=== PATIENT | female | born 1945 | race Caucasian/White ===

== ENCOUNTER 2017-10-22 08:38 | Emergency (ER) | payer OTHER, BC ==
[~2017-10-22] VITALS: Ht 167.6 cm; Wt 68.0 kg
[2017-10-22 08:47] VITALS: Ht 167.6 cm; Wt 68.0 kg
[2017-10-22 12:46] VITALS: BP 101/53
== END 2017-10-22 12:46 | disposition home or self-care (01) ==
LOC: ED 08:38
DX: S52.502A Unspecified fracture of the lower end of left radius, initial encounter for closed fracture (principal); S52.612A Displaced fracture of left ulna styloid process, initial encounter for closed fracture; S51.001A Unspecified open wound of right elbow, initial encounter; S80.02XA Contusion of left knee, initial encounter; E78.00 Pure hypercholesterolemia, unspecified; W18.30XA Fall on same level, unspecified, initial encounter; Y93.89 Activity, other specified; Y92.89 Other specified places as the place of occurrence of the external cause; Y99.8 Other external cause status
CPT/HCPCS: 90715; J1885; J2405; Q0092

== ENCOUNTER 2017-10-29 08:58 | Inpatient (IN) | payer OTHER, BC ==
[2017-10-25 11:00] LABS: BASOPHIL % 0.4 % (0-2); PLATELET COUNT 230 x10^3mcL (130-400); RED CELL DISTRIBUTION WIDTH 14.4 % (11.5-14.5)
[2017-10-25 11:37] LABS: CALCIUM 9.2 mg/dL (8.5-10.1); CARBON DIOXIDE 26.5 mmol/L (21-32); CHLORIDE SERUM 104 mmol/L (98-107); CREATININE SERUM 0.9 mg/dL (0.6-1.0); GLUCOSE SERUM 106 mg/dL (74-106); POTASSIUM SERUM 3.9 mmol/L (3.5-5.1); SODIUM SERUM 140 mmol/L (136-145)
[~2017-10-29] VITALS: Ht 157.5 cm; Wt 76.9 kg
[2017-10-29 09:37] VITALS: BP 119/66
[2017-10-29 16:12] VITALS: BP 145/70
[2017-10-29 22:42] VITALS: BP 101/50
[2017-10-30 05:02] VITALS: BP 122/56
[2017-10-30 08:53] VITALS: BP 111/61
[2017-10-30 12:25] VITALS: BP 119/60
[2017-10-30 16:38] VITALS: BP 122/61
== END 2017-10-30 18:46 | DRG 511 ==
LOC: MU 08:58
PROVIDERS: Neuromusculoskeletal Medicine, Sports Medicine
PROC: 2W3MX1Z Immobilization of Left Lower Extremity using Splint (ICD-10-PCS; 2017-10-29)
PROC: 2W38XYZ Immobilization of Right Upper Extremity using Other Device (ICD-10-PCS; 2017-10-29)
PROC: 0PSJ04Z Reposition Left Radius with Internal Fixation Device, Open Approach (ICD-10-PCS; principal; 2017-10-29 10:30)
DX: S52.592A Other fractures of lower end of left radius, initial encounter for closed fracture (principal); S82.002A Unspecified fracture of left patella, initial encounter for closed fracture; I50.30 Unspecified diastolic (congestive) heart failure; S52.121A Displaced fracture of head of right radius, initial encounter for closed fracture; S52.602A Unspecified fracture of lower end of left ulna, initial encounter for closed fracture; I25.10 Atherosclerotic heart disease of native coronary artery without angina pectoris; E78.5 Hyperlipidemia, unspecified; Z79.82 Long term (current) use of aspirin; W10.1XXA Fall (on)(from) sidewalk curb, initial encounter; Y92.480 Sidewalk as the place of occurrence of the external cause
CPT/HCPCS: 97110-GP; 97116-GP; 97530-GP; 97535-GP; C1713; C9359; J0690; J1170; J2405; J2704; J3010; J3490; J7120